=== PATIENT | female | born 1990 | race Caucasian/White ===

== ENCOUNTER → 2017-02-26 | Outpatient (REF) | payer BC ==
[2017-02-26 13:34] LABS: ESTRADIOL 162.7 PG/ML; PROGESTERONE 38.6 NG/ML
== END ==
LOC: M LABDRWAD 12:27
PROVIDERS: ATTEND Obstetrics & Gynecology Reproductive Endocrinology
DX: N97.9 Female infertility, unspecified (principal)

== ENCOUNTER → 2017-03-05 | Outpatient (CLI) | payer BC ==
[2017-03-05 10:59] LABS: PROGESTERONE 42.5 NG/ML
[2017-03-05 11:03] LABS: ESTRADIOL 587.2 PG/ML
== END ==
LOC: M SMT 09:08
PROVIDERS: ATTEND Obstetrics & Gynecology Reproductive Endocrinology
DX: Z32.01 Encounter for pregnancy test, result positive (principal)

== ENCOUNTER → 2017-03-19 | Outpatient (CLI) | payer BC ==
[2017-03-19 14:05] LABS: ESTRADIOL 480.9 PG/ML; PROGESTERONE 28.9 NG/ML
== END ==
LOC: M SMT 12:21
PROVIDERS: ATTEND Obstetrics & Gynecology Reproductive Endocrinology
DX: O09.00 Supervision of pregnancy with history of infertility, unspecified trimester (principal)

== ENCOUNTER → 2017-04-23 | Outpatient (CLI) | payer BC ==
[2017-04-23 18:01] LABS: BASO % 0.5 % (0.0-1.0); EOS # 0.1 K/mm3 (0.0-0.50); EOS % 1.3 % (0.0-3.0); LARGE UNSTAINED CELL # 0.1 K/mm3 (0.0-0.4); LARGE UNSTAINED CELL % 1.2 % (0.0-4.0); LYMPH # 1.1 K/mm3 (1.5-6.5); LYMPH % 14.3 % (24.0-44.0); MEAN CORPUSCULAR HEMOGLOBIN 30.2 pg (27.0-33.0); MEAN CORPUSCULAR VOLUME 88.8 fl (80.0-96.0); MONO # 0.4 K/mm3 (0.0-0.8); MONO % 5.1 % (0.0-5.0); NEUTROPHILS # 5.7 K/mm3 (1.8-7.7); NEUTROPHILS % 77.6 % (36.0-66.0); PLATELET COUNT, AUTOMATED 286 k/mm3 (150-450); RED CELL DISTRIBUTION WIDTH 12.9 % (11.5-14.5); WHITE BLOOD COUNT 7.3 K/mm3 (4.0-10.0)
[2017-04-26 08:50] LABS: HBsAg Prenatal NEGATIVE (NEGATIVE)
== END ==
LOC: M SMT 13:58
PROVIDERS: ATTEND Obstetrics & Gynecology
DX: Z34.81 Encounter for supervision of other normal pregnancy, first trimester (principal)

== ENCOUNTER → 2017-06-14 | Outpatient (CLI) | payer BC ==
--- NOTE | 2017-06-15 07:43 | REP ---
Obstetric ultrasound for anatomy, twin gestation: Twin A is in a vertex presentation on the maternal left. Twin B is in transverse lie with the head to the maternal left. heart rate of twin A is 153 beats per minute and of twin B is 153 beats per minute. Cervix is 3.4 cm length. The deepest amniotic fluid pocket for twin A is 2.7 cm and for twin B is 4.5 cm. Amniotic fluid volume subjectively is normal for each twin. Based on today's measurements: Gestational age for twin A is 18 weeks 6 days and for twin B is 19 weeks 1 day. weight for twin A is 265 grams (0 pounds 9 ounces). This is the 48th percentile for 18 weeks 6 days. Gestational age for twin B is 286 grams (0 pounds, 10 ounces). This is the 62nd percentile for 18 weeks 6 days. For twin A: The following anatomic structures are identified and are unremarkable: Cranium, choroid plexus, cavum septum pellucidum, cerebellum, facial profile, intracranial lateral ventricles, facial profile, lungs, diaphragm, stomach, cord insertion, three-vessel cord, kidneys, bladder, spine and upper lower extremities. Suboptimally demonstrated because of lie of the four-chamber view of the heart and the cardiac right and left ventricular outflow tracts. Follow-up study of 28. Dedicated to these structures might be considered. Otherwise, no anomalies. Twin B: The following anatomic structures are identified and are unremarkable: Cranium, cavum septum pellucidum, cerebellum, facial profile, lungs, stomach, cord insertion, three-vessel cord, kidneys, bladder, spine and upper right studies. Suboptimally demonstrated are the choroid plexus, intracranial lateral ventricles, four-chamber heart, right and left cardiac ventricular outflow tracts and diaphragm. A followup study dedicated to these structures might be considered. Otherwise, there are no anomalies. Signed by Ridge Adkins MD 06/14/2017 04:37 P
== END ==
LOC: M SMT 13:02
PROVIDERS: ATTEND Advanced Practice Midwife
DX: Z36 Encounter for antenatal screening of mother (principal)